=== PATIENT | female | born 1990 | race Two or more races ===

== ENCOUNTER 2017-03-12 14:21 | Outpatient (CLI) | payer OTHER ==
[~2017-03-12] VITALS: Ht 152.4 cm; Wt 71.4 kg
[2017-03-12 14:59] VITALS: BP 115/70
== END 2017-03-12 15:28 | disposition home or self-care (01) ==
LOC: LDOP 14:21
PROVIDERS: ATTEND Obstetrics & Gynecology
DX: O26.892 Other specified pregnancy related conditions, second trimester (principal); H53.8 Other visual disturbances; Z3A.24 24 weeks gestation of pregnancy
CPT/HCPCS: 59025; 99201; G0463

== ENCOUNTER 2017-07-04 14:35 | Inpatient (IN) | payer OTHER ==
[~2017-07-04] VITALS: Ht 152.4 cm; Wt 80.0 kg
[2017-07-04] MEDS: D5%-LACTATED RINGERS 1,000 ML IV SCH ×2 (05:37→22:51)
[2017-07-04] MEDS ORDERED: OXYTOCIN 30U/ 0.9% NaCL 500ML 500 ML IV ONE (14:51)
[2017-07-04] MEDS ORDERED: OXYTOCIN 30U/ 0.9% NaCL 500ML 500 ML IV PRN (14:51)
[2017-07-04] MEDS ORDERED: SODIUM CITRATE/CITRIC ACID 30 ML UDC PO PRN (15:00)
[2017-07-04] MEDS ORDERED: CALCIUM CARBONATE 500 MG TAB.CHEW PO PRN (15:00)
[2017-07-04] MEDS ORDERED: ONDANSETRON 2MG/ML, 2ML IVPush PRN (15:00)
[2017-07-04] MEDS ORDERED: ALUMINUM/MAG/SIMETHICONE 30 ML UDC PO PRN (15:00)
[2017-07-04 15:06] VITALS: BP 111/73
[2017-07-04] MEDS ORDERED: NEWBORN KIT ONE (15:35)
[2017-07-04] MEDS ORDERED: MISOPROSTOL 200 MCG TABLET ONE (15:35)
[2017-07-04] MEDS ORDERED: OXYTOCIN 30U/ 0.9% NaCL 500ML 500 ML ONE (15:35)
[2017-07-04] MEDS ORDERED: LIDOCAINE 1%, 20ML ONE (15:35)
[2017-07-04 15:36] LABS: HEMATOCRIT 36.5 % (34.6-47.8); HEMOGLOBIN 12.2 g/dL (11.7-16.4); WHITE BLOOD COUNT 7.6 x10^3/uL (3.4-10)
[2017-07-04] MEDS: LACTATED RINGERS 1,000 ML IV SCH ×2 (16:05→23:27)
[2017-07-04] MEDS ORDERED: PNV11TAB5 PO (17:25)
[2017-07-04] MEDS ORDERED: FENTANYL PF 100 MCG/2ML ONE (23:08)
[2017-07-04] MEDS: FENTANYL PF 100 MCG/2ML IVPush PRN (23:24)
[2017-07-05] MEDS ORDERED: FENTANYL PF 100 MCG/2ML ONE (00:37)
[2017-07-05] MEDS: FENTANYL PF 100 MCG/2ML IVPush PRN (00:41)
[2017-07-05] MEDS ORDERED: FENTANYL/BUPIV./NS/PF 250 ML EPIDCONT ONE (02:07)
[2017-07-05] MEDS ORDERED: BUPIVACAINE 0.25% ONE (02:10)
[2017-07-05] MEDS ORDERED: LIDOCAINE/PF 1.5%-EPI 1:200K, 30ML ONE (02:10)
[2017-07-05] MEDS: FENTANYL/BUPIV./NS/PF 250 ML EPIDCONT SCH (02:35)
[2017-07-05] MEDS ORDERED: NALOXONE 0.4 MG/ML, 1ML IVPush PRN (03:00)
[2017-07-05] MEDS ORDERED: LACTATED RINGERS 1,000 ML IVBOLUS PRN (03:00)
[2017-07-05] MEDS ORDERED: EPHEDRINE 50 MG/ML, 1ML IVPush PRN (03:00)
[2017-07-05] MEDS: AMPICILLIN 2 GM in SODIUM CHLORIDE 0.9% 100 ML IV SCH ×3 (06:30→12:21)
[2017-07-05] MEDS: D5%-LACTATED RINGERS 1,000 ML IV SCH ×3 (06:51→22:51)
[2017-07-05 07:18] VITALS: BP 105/56
[2017-07-05] MEDS: LACTATED RINGERS 1,000 ML IV SCH ×7 (07:28→23:28)
[2017-07-05] MEDS ORDERED: OXYTOCIN 30U/ 0.9% NaCL 500ML 500 ML IV PRN (14:51)
[2017-07-05] MEDS ORDERED: MISOPROSTOL 200 MCG TABLET PR PRN (18:00)
[2017-07-05] MEDS ORDERED: METHYLERGONOVINE 0.2 MG/ML IM PRN (18:00)
[2017-07-05] MEDS ORDERED: ACETAMINOPHEN 325 MG TABLET PO PRN (18:00)
[2017-07-05] MEDS ORDERED: OXYcodone/APAP 5/325MG TABLET PO PRN (18:00)
[2017-07-05] MEDS ORDERED: ONDANSETRON 2MG/ML, 2ML IV PRN (18:00)
[2017-07-05] MEDS ORDERED: CARBOPROST TROMETHAMINE 250 MCG/ML, 1ML IM PRN (18:00)
[2017-07-05] MEDS ORDERED: IBUPROFEN 600 MG TABLET ONE (18:01)
[2017-07-05] MEDS: IBUPROFEN 600 MG TABLET PO PRN (18:04)
[2017-07-05] MEDS ORDERED: OXYTOCIN 30U/ 0.9% NaCL 500ML 500 ML ONE (18:31)
[2017-07-05] MEDS: OXYTOCIN 30U/ 0.9% NaCL 500ML 500 ML IV SCH (18:44)
[2017-07-05 21:25] VITALS: BP 100/63
[2017-07-06] MEDS: IBUPROFEN 600 MG TABLET PO PRN ×4 (00:04→17:59)
[2017-07-06] MEDS: AMPICILLIN 2 GM in SODIUM CHLORIDE 0.9% 100 ML IV SCH ×4 (00:30→18:07)
[2017-07-06 01:35] VITALS: BP 107/74
[2017-07-06 01:49] LABS: HEMATOCRIT 30.6 % (34.6-47.8); HEMOGLOBIN 10.5 g/dL (11.7-16.4); WHITE BLOOD COUNT 18.4 x10^3/uL (3.4-10)
[2017-07-06 02:13] LABS: DIFF TOTAL CELLS COUNTED 100 CELL DIFF
[2017-07-06 02:15] LABS: VERIFY COUNTS? YES
[2017-07-06] MEDS: LACTATED RINGERS 1,000 ML IV SCH ×4 (02:35→15:28)
[2017-07-06] MEDS: FENTANYL/BUPIV./NS/PF 250 ML EPIDCONT SCH (02:35)
[2017-07-06] MEDS: OXYTOCIN 30U/ 0.9% NaCL 500ML 500 ML IV SCH ×2 (03:48→13:48)
[2017-07-06 06:00] VITALS: BP 102/61
[2017-07-06] MEDS: D5%-LACTATED RINGERS 1,000 ML IV SCH ×2 (06:51→14:51)
[2017-07-06 08:00] VITALS: BP 109/73
[2017-07-06] MEDS: PRENATAL VIT/IRON/FA 1 EACH TABLET PO SCH (09:46)
[2017-07-06] MEDS: DOCUSATE 100 MG CAPSULE PO PRN (09:46)
[2017-07-06] MEDS: OXYcodone/APAP 5/325MG TABLET PO PRN ×2 (09:48→18:02)
[2017-07-06 13:00] VITALS: BP 128/72
[2017-07-06 20:45] VITALS: BP 126/83
[2017-07-07] MEDS ORDERED: IBUP-1222 PO (01:15)
[2017-07-07] MEDS ORDERED: OXYC-302 PO (01:17)
[2017-07-07] MEDS ORDERED: MEASLES,MUMPS&RUBELLA VACC/PF 0.5 ML SQ-VACC ONE (04:00)
[2017-07-07] MEDS ORDERED: DIPH,PERTUSS(ACELL),TET VAC/PF NC IM-VACC ONE (04:30)
[2017-07-07] MEDS: IBUPROFEN 600 MG TABLET PO PRN ×2 (04:33→11:32)
[2017-07-07 07:30] VITALS: BP 109/79
[2017-07-07] MEDS: PRENATAL VIT/IRON/FA 1 EACH TABLET PO SCH (11:32)
[2017-07-07] MEDS: DOCUSATE 100 MG CAPSULE PO PRN (11:32)
== END 2017-07-07 19:05 | disposition home or self-care (01) | DRG 775 ==
LOC: LDOP 14:35 → LDIP 15:50 → 2NW 07-05 21:49
PROVIDERS: ADMIT Obstetrics & Gynecology; ATTEND Obstetrics & Gynecology
PROC: 10E0XZZ Delivery of Products of Conception, External Approach (ICD-10-PCS; principal; 2017-07-05)
PROC: 0HQ9XZZ Repair Perineum Skin, External Approach (ICD-10-PCS; 2017-07-05)
PROC: 3E0R3BZ Introduction of Anesthetic Agent into Spinal Canal, Percutaneous Approach (ICD-10-PCS; 2017-07-05)
PROC: 00HU33Z Insertion of Infusion Device into Spinal Canal, Percutaneous Approach (ICD-10-PCS; 2017-07-05)
DX: O42.92 Full-term premature rupture of membranes, unspecified as to length of time between rupture and onset of labor (principal); O69.81X0 Labor and delivery complicated by cord around neck, without compression, not applicable or unspecified; O77.0 Labor and delivery complicated by meconium in amniotic fluid; O70.0 First degree perineal laceration during delivery; Z37.0 Single live birth; Z3A.40 40 weeks gestation of pregnancy
CPT/HCPCS: 36415; 81001; 82803; 85025; 86850; 86900; 90715; J0290; J3010; J3490; J2590; J7120; J7121